=== PATIENT | female | born 1970 | race African-American/Black ===

== ENCOUNTER 2019-03-02 18:23 | Observation (INO) | payer BC ==
[~2019-03-02] VITALS: Ht 160 cm; Wt 70.5 kg
[2019-03-02 19:25] LABS: APPEARANCE,URINE CLEAR (CLEAR); BILIRUBIN,URINE NEGATIVE (NEGATIVE); COLOR,URINE YELLOW (YELLOW); GLUCOSE, URINE (UA) NEGATIVE (NEGATIVE); KETONES,URINE 15 mg/dL (NEGATIVE); LEUKOCYTE ESTERASE ,URINE NEGATIVE (NEGATIVE); NITRATE,URINE NEGATIVE (NEGATIVE); OCCULT BLOOD,URINE NEGATIVE (NEGATIVE); PROTEIN,URINE 30 mg/dL (NEGATIVE); UROBILINOGEN,URINE 0.2 mg/dL (0.2-1.0)
[2019-03-02] MEDS ORDERED: ONDANSETRON HCL 4 MG/2 ML VIAL ONE (19:29)
[2019-03-02 19:32] LABS: BACTERIA,URINE Rare /HPF (None Seen); MUCUS,URINE Rare LPF (None Seen); RBC,URINE 0-1 /HPF (0-1); SQUAMOUS EPITHELIAL CELL,UR Rare /HPF (0-2)
[2019-03-02 20:12] LABS: INR 1.05 (0.85-1.15); PARTIAL THROMBOPLASTIN TIME 27.4 SEC (26.3-35.5)
[2019-03-02 20:16] LABS: BASOPHILS % (AUTO) 0.4 % (0.0-5.0); LYMPHOCYTES % (AUTO) 11.4 % (21.0-51.0); MEAN CORPUSCULAR HEMOGLOBIN 27.2 pg (27.0-33.0); MEAN CORPUSCULAR HGB CONC 33.2 g/dL (32.0-36.0); MEAN CORPUSCULAR VOLUME 81.7 fL (79-99); MONOCYTES % (AUTO) 6.6 % (3.0-13.0); NEUTROPHILS % (AUTO) 81.6 % (40.0-77.0); PLATELET COUNT (AUTO) 116 K/uL (130-400); RED CELL DISTRIBUTION WIDTH 15.3 % (11.0-15.5); WHITE BLOOD COUNT (AUTO) 9.2 K/uL (4.8-10.8)
[2019-03-02 20:20] LABS: ALBUMIN 3.6 g/dL (3.5-5.0); BILIRUBIN,TOTAL 0.3 mg/dL (0.2-1.0); TOTAL PROTEIN, SERUM 8.2 g/dL (6.0-8.3)
[2019-03-02 20:24] LABS: POTASSIUM 2.8 mmol/L (3.5-5.1)
[2019-03-02 20:29] LABS: PLATELET MORPHOLOGY COMMENT SLIGHTLY DECREASED
[2019-03-02 20:30] LABS: B-TYPE NATRIURETIC PEPTIDE 18 pg/mL (0-100)
[2019-03-02] MEDS ORDERED: IOHEXOL-350 75 ML VIAL IV ONE (20:42)
[2019-03-02] MEDS ORDERED: SODIUM CHLORIDE 0.9% 1000ML 2,000 ML IV ONE (21:17)
[2019-03-02] MEDS ORDERED: METRONIDAZOLE 500MG/100ML BAG 100 ML ONE (21:56)
[2019-03-02] MEDS ORDERED: LEVOFLOXACIN 750 MG/D5W 150 ML 150 ML ONE (21:56)
[2019-03-02] MEDS ORDERED: POTASSIUM CHLORIDE 20MEQ/100ML 100 ML IV ONE (22:25)
[2019-03-02] MEDS ORDERED: ATORVASTATIN CALCIUM 20 MG TABLET ONE (22:25)
[2019-03-02] MEDS ORDERED: LEVETIRACETAM 500 MG TABLET PO ONE (22:26)
[2019-03-02] MEDS ORDERED: HYOSCYAMINE SULFATE 0.125 MG TAB.SUBL SL ONE ×2 (22:26→22:28)
[2019-03-02] MEDS ORDERED: ZOSYN 3.375GM+NS 50ML 50 ML IV ONE (23:46)
[2019-03-02] MEDS ORDERED: DEXTROSE 5 % AND 0.9 % NACL 1,000 ML IV ONE (23:46)
[2019-03-03] VITALS (7 sets, daily range): BP systolic 81–117; BP diastolic 52–76
[2019-03-03] MEDS ORDERED: ONDANSETRON HCL 4 MG/2 ML VIAL IVP PRN (00:30)
[2019-03-03] MEDS ORDERED: HYOS0.3738 PO (00:41)
[2019-03-03] MEDS ORDERED: LIFI1DRO OP (00:41)
[2019-03-03] MEDS ORDERED: METO-408 PO (00:41)
[2019-03-03] MEDS ORDERED: VALA500T38 PO (00:41)
[2019-03-03] MEDS ORDERED: HYDR-4068 PO (00:41)
[2019-03-03] MEDS ORDERED: CLON1PAT13 TD (00:41)
[2019-03-03] MEDS ORDERED: VENL37.570 PO (00:41)
[2019-03-03] MEDS ORDERED: CYPR4TAB46 PO (00:41)
[2019-03-03] MEDS ORDERED: ELIM560C TP (00:41)
[2019-03-03] MEDS ORDERED: IBUP-2077 PO (00:41)
[2019-03-03] MEDS ORDERED: HYDR-3421 PO (00:41)
[2019-03-03] MEDS ORDERED: ATOR10 PO (00:41)
[2019-03-03] MEDS ORDERED: LEVE500T19 PO (00:41)
[2019-03-03] MEDS ORDERED: ONDA8TAB12 PO (00:41)
--- NOTE | 2019-03-03 01:20 | NUR ---
PAIN Paged dr silvestre re pts c/o abdominal pain.
[2019-03-03] MEDS ORDERED: MORPHINE SULFATE 2 MG/ML 1ML SYG IVP PRN (01:30)
[2019-03-03] MEDS ORDERED: POTASSIUM CHLORIDE 10% ELIXIR 20 MEQ/15 ML UDCUP PO PRN (01:30)
[2019-03-03] MEDS ORDERED: LIDOCAINE HCL-MPF 1% 2ML VIAL IV PRN (01:30)
[2019-03-03] MEDS ORDERED: POTASSIUM CHLORIDE 20MEQ/100ML 100 ML IV PRN (01:30)
[2019-03-03] MEDS: DEXTROSE 5 % AND 0.9 % NACL 1,000 ML IV SCH ×3 (02:24→17:14)
[2019-03-03 05:41] LABS: HEMATOCRIT 34.8 % (36-48); MEAN CORPUSCULAR HEMOGLOBIN 27.6 pg (27.0-33.0); MEAN CORPUSCULAR HGB CONC 33.4 g/dL (32.0-36.0); MEAN CORPUSCULAR VOLUME 82.8 fL (79-99); NUCLEATED RED BLOOD CELLS 0.1 % (0.0-0.19); PLATELET COUNT (AUTO) 107 K/uL (130-400); RED CELL DISTRIBUTION WIDTH 15.1 % (11.0-15.5); WHITE BLOOD COUNT (AUTO) 8.6 K/uL (4.8-10.8)
[2019-03-03 05:56] LABS: BILIRUBIN,TOTAL 0.3 mg/dL (0.2-1.0); POTASSIUM 3.1 mmol/L (3.5-5.1); TOTAL PROTEIN, SERUM 6.9 g/dL (6.0-8.3)
[2019-03-03] MEDS: POTASSIUM CHLORIDE 20 MEQ ERTAB PO PRN ×3 (06:09→12:37)
[2019-03-03] MEDS: FLU VACC QUAD 2019-20(6MOS UP) 60 MCG/0.5 ML VIAL IM SCH (07:44)
[2019-03-03] MEDS: ZOSYN 3.375GM+NS 50ML 50 ML IV SCH ×2 (07:54→17:13)
[2019-03-03 08:19] LABS: LYMPHOCYTES % (MANUAL) 21 % (22-44); MAN.DIFF COMMENT-IMPRESSION MANUAL DIFFERENTIAL; MONOCYTES % (MANUAL) 16 % (2-9); PLATELET MORPHOLOGY COMMENT SLIGHTLY DECREASED; REACTIVE LYMPHOCYTES 1 % (0-0); SEGMENTED NEUTROPHILS % 62 % (40-70)
[2019-03-03] MEDS ORDERED: SODIUM CHLORIDE 0.9% 1000ML 1,000 ML IV SCH (09:45)
--- NOTE | 2019-03-03 09:51 | NUR ---
NS BOLUS Called Dr. Young and informed him of patient's BP. Ordered NS bolus 1L bag and started at 0950.
[2019-03-03] MEDS ORDERED: HYDROCODONE/ACETAMINOPHEN 10/325 MG TAB ONE (12:34)
--- NOTE | 2019-03-03 16:00 | NUR ---
INITIAL MET W PT; AAOX3, INDP, EMPLOYED, LIVES W [place], NO DME, HX METASTATIC BREAST CANCER- HOME SAFE AND ACCESSIBLE, DCP HOME Addendum: 03/04/19 at 1707 by REENA MONTEMAYOR RN CM Amended: Links added.
--- NOTE | 2019-03-03 20:00 | NUR ---
BOTH ARM RESTRICTION Pt states she only had a lumpectomy done to her left arm,denies habing alejandrina mastectomies.Informed of Md orders to keep both arm restricted.Verbalized understanding.
[2019-03-03] MEDS: HYDROCODONE/ACETAMINOPHEN 10/325 MG TAB PO PRN (21:39)
[2019-03-04 00:24] VITALS: BP 136/98
[2019-03-04] MEDS: ZOSYN 3.375GM+NS 50ML 50 ML IV SCH ×2 (00:28→10:18)
[2019-03-04] MEDS: HYDROCODONE/ACETAMINOPHEN 10/325 MG TAB PO PRN ×2 (01:42→10:19)
--- NOTE | 2019-03-04 02:00 | NUR ---
SHOWER Pt took a shower and bathed with CHG wipes.States she feels itchy after the chg wipes.
[2019-03-04] MEDS: DEXTROSE 5 % AND 0.9 % NACL 1,000 ML IV SCH ×2 (02:38→10:18)
[2019-03-04 04:11] VITALS: BP 130/67
[2019-03-04] MEDS: POTASSIUM CHLORIDE 20 MEQ ERTAB PO PRN ×2 (07:03→10:19)
[2019-03-04 07:30] VITALS: BP 117/69
[2019-03-04] MEDS: FLU VACC QUAD 2019-20(6MOS UP) 60 MCG/0.5 ML VIAL IM SCH (09:00)
[2019-03-04 11:00] VITALS: BP 120/68
== END 2019-03-04 15:15 | disposition home or self-care (01) ==
LOC: EDH 18:23 → EDHIP 22:28 → 3CH 03-03 00:51
PROVIDERS: ADMIT Internal Medicine Hematology & Oncology; ATTEND Internal Medicine Hematology & Oncology
DX: K52.9 Noninfective gastroenteritis and colitis, unspecified (principal); K59.00 Constipation, unspecified; I45.81 Long QT syndrome; I51.7 Cardiomegaly; C50.919 Malignant neoplasm of unspecified site of unspecified female breast; C79.51 Secondary malignant neoplasm of bone; C79.31 Secondary malignant neoplasm of brain; C78.7 Secondary malignant neoplasm of liver and intrahepatic bile duct; C78.00 Secondary malignant neoplasm of unspecified lung; J45.909 Unspecified asthma, uncomplicated; Z90.13 Acquired absence of bilateral breasts and nipples; Z92.21 Personal history of antineoplastic chemotherapy; Z95.828 Presence of other vascular implants and grafts; Z90.710 Acquired absence of both cervix and uterus
CPT/HCPCS: 36415 ×2; 71045; 74177; 80053 ×2; 81001; 82550; 83605; 83690; 83880; 84132; 84484; 85025 ×2; 85610; 85730; 87040 ×2; 87088; 93005; 96361 ×2; 96365; 96366 ×2; 96375; 99283; G0378 ×41; J1956; J2405; J2543 ×5; J3480; J3490; J7030; J7042 ×5; Q2036 ×2; Q9967; 96376

== ENCOUNTER → 2019-10-09 | Outpatient (CLI) | payer BC ==
[~2019-10-09] MED LIST: ATOR10 PO; CLON1PAT13 TD; CYPR4TAB46 PO; ELIM560C TP; HYDR-3421 PO; HYDR-4068 PO; HYOS0.3738 PO; IBUP-2077 PO; LEVE500T19 PO; LIFI1DRO OP; METO-408 PO; ONDA8TAB12 PO; VALA500T42 PO; VENL37.570 PO
== END | disposition home or self-care (01) ==
LOC: RAH 08:16
PROVIDERS: ATTEND Internal Medicine Hematology & Oncology
DX: E78.5 Hyperlipidemia, unspecified (principal); R55 Syncope and collapse
CPT/HCPCS: 93306; 93356

== ENCOUNTER 2019-11-29 17:48 | Emergency (ER) | payer BC ==
[2019-11-29 18:51] LABS: BASOPHILS % (AUTO) 0.3 % (0.0-5.0); EOSINOPHILS % (AUTO) 0.3 % (0.0-8.0); HEMATOCRIT 38.4 % (36-48); LYMPHOCYTES % (AUTO) 27.3 % (21.0-51.0); MEAN CORPUSCULAR HEMOGLOBIN 28.1 pg (27.0-33.0); MEAN CORPUSCULAR VOLUME 87.9 fL (79-99); MONOCYTES % (AUTO) 9.7 % (3.0-13.0); NEUTROPHILS % (AUTO) 62.1 % (40.0-77.0); PLATELET COUNT (AUTO) 131 K/uL (130-400); RED BLOOD CELL COUNT(AUTO) 4.37 MIL/uL (4.00-5.50); RED CELL DISTRIBUTION WIDTH 15.9 % (11.0-15.5); WHITE BLOOD COUNT (AUTO) 6.3 K/uL (4.8-10.8)
[2019-11-29] MEDS ORDERED: DiphenhydrAMINE HCL 50 MG/ML VIAL ONE (18:55)
[2019-11-29 18:59] LABS: POTASSIUM 3.6 mmol/L (3.5-5.1)
[2019-11-29 19:08] LABS: INR 1.09 (0.85-1.15); PROTHROMBIN TIME 11.7 SEC (9.6-11.6)
[2019-11-29] MEDS ORDERED: LORAZEPAM 2 MG/ML 1 ML VIAL ONE (19:12)
[2019-11-29 20:06] LABS: PARTIAL THROMBOPLASTIN TIME > 120.0 SEC (26.3-35.5)
[2020-03-10] MEDS ORDERED: PANT40TA54 PO (23:53)
[2020-03-10] MEDS ORDERED: ALPR0.255 PO (23:53)
[2020-03-10] MEDS ORDERED: CYCL10TA7 PO (23:53)
[2020-03-10] MEDS ORDERED: COD30 PO (23:53)
[2020-03-10] MEDS ORDERED: FLUO30CR TP (23:53)
[2020-03-10] MEDS ORDERED: HYDR28.484 RC (23:53)
[2020-03-10] MEDS ORDERED: DIPH1TAB24 PO (23:53)
[2020-03-10] MEDS ORDERED: TUCA150T PO (23:53)
[2020-03-10] MEDS ORDERED: CAPECITABINE 500 MG PO (23:53)
== END 2019-11-29 20:50 | disposition home or self-care (01) ==
LOC: EDH 17:48
DX: R22.0 Localized swelling, mass and lump, head (principal); T45.1X5A Adverse effect of antineoplastic and immunosuppressive drugs, initial encounter; Z88.8 Allergy status to other drugs, medicaments and biological substances; Z85.3 Personal history of malignant neoplasm of breast; Z85.830 Personal history of malignant neoplasm of bone; Z85.841 Personal history of malignant neoplasm of brain; Z85.05 Personal history of malignant neoplasm of liver; Z85.118 Personal history of other malignant neoplasm of bronchus and lung; Z90.710 Acquired absence of both cervix and uterus; Y92.89 Other specified places as the place of occurrence of the external cause
CPT/HCPCS: 36415; 80048; 85025; 85610; 85730; 96374; 96375; 99284; J1200; J2060

== ENCOUNTER 2020-03-23 17:19 | Inpatient (IN) | payer BC ==
[~2020-03-23] VITALS: Ht 160 cm; Wt 61.6 kg
[~2020-03-23 17:19] MED LIST changes: +ALPR0.255 PO; +CAPECITABINE 500 MG PO; +COD30 PO; +CYCL10TA7 PO; +DIPH1TAB24 PO; +FLUO30CR TP; +HYDR28.484 RC; -LEVE500T19 PO; +PANT40TA54 PO; +TUCA150T PO; -VENL37.570 PO
[2020-03-23 18:25] LABS: BASOPHILS % (AUTO) 1.5 % (0.0-5.0); EOSINOPHILS % (AUTO) 0.3 % (0.0-8.0); HEMATOCRIT 42.5 % (36-48); LYMPHOCYTES % (AUTO) 40.1 % (21.0-51.0); MEAN CORPUSCULAR HEMOGLOBIN 29.8 pg (27.0-33.0); MEAN CORPUSCULAR HGB CONC 33.2 g/dL (32.0-36.0); MEAN CORPUSCULAR VOLUME 89.9 fL (79-99); MONOCYTES % (AUTO) 14.9 % (3.0-13.0); NEUTROPHILS % (AUTO) 42.6 % (40.0-77.0); PLATELET COUNT (AUTO) 264 K/uL (130-400); RED BLOOD CELL COUNT(AUTO) 4.73 MIL/uL (4.00-5.50); WHITE BLOOD COUNT (AUTO) 3.3 K/uL (4.8-10.8)
[2020-03-23 18:32] LABS: CARBON DIOXIDE 28 mmol/L (21-32); CHLORIDE 102 mmol/L (101-111); GLOMERULAR FILTR. RATE CALC 76 mL/min (>60); GLUCOSE,RANDOM 145 mg/dL (70-105); POTASSIUM 3.6 mmol/L (3.5-5.1); SODIUM SERUM 137 mmol/L (136-145); UREA NITROGEN, BLOOD 7 mg/dL (7-18)
[2020-03-23 18:34] LABS: INR 1.02 (0.85-1.15); PARTIAL THROMBOPLASTIN TIME 26.6 SEC (26.3-35.5)
[2020-03-23 18:36] LABS: ALANINE AMINOTRANSFERASE 33 U/L (12-78); ALBUMIN 3.4 g/dL (3.5-5.0); ASPARTATE AMINOTRANSFERASE 36 U/L (10-37); BILIRUBIN,TOTAL 0.4 mg/dL (0.2-1.0); CREATINE KINASE, TOTAL 140 U/L (21-232); TOTAL PROTEIN, SERUM 8.2 g/dL (6.0-8.3)
[2020-03-23 18:39] LABS: ACETAMINOPHEN < 1 mcg/mL (10-30); ALCOHOL, BLOOD < 3 mg/dL (0-10); SALICYLATE < 2.8 mg/dL (2.8-20.0)
[2020-03-23 18:47] LABS: APPEARANCE,URINE Clear (CLEAR); BILIRUBIN,URINE Negative (NEGATIVE); COLOR,URINE Yellow (YELLOW); GLUCOSE, URINE (UA) Negative (NEGATIVE); KETONES,URINE Negative (NEGATIVE); LEUKOCYTE ESTERASE ,URINE Negative (NEGATIVE); NITRATE,URINE Negative (NEGATIVE); OCCULT BLOOD,URINE Negative (NEGATIVE); PROTEIN,URINE Negative (NEGATIVE); UROBILINOGEN,URINE 0.2 mg/dL (0.2-1.0)
[2020-03-23 18:53] LABS: AMPHET/METH SCREEN,URINE NEGATIVE (NEGATIVE); BARBITURATE SCREEN, URINE NEGATIVE (NEGATIVE); BENZODIAZEPINES SCREEN,URINE NEGATIVE (NEGATIVE); CANNABINOID SCREEN,URINE NEGATIVE (NEGATIVE); COCAINE SCREEN,URINE NEGATIVE (NEGATIVE); OPIATE SCREEN,URINE NEGATIVE (NEGATIVE); PHENCYCLIDINE SCREEN,URINE NEGATIVE (NEGATIVE)
[2020-03-24] MEDS ORDERED: LORAZEPAM 2 MG/ML 1 ML VIAL ONE (02:01)
[2020-03-24] MEDS ORDERED: ZIPRASIDONE MESYLATE 20 MG/VIAL IM ONE (02:01)
[2020-03-24] MEDS: SODIUM CHLORIDE 0.9% 1000ML 1,000 ML IV SCH (16:45)
[2020-03-24 16:48] VITALS: BP 108/70
[2020-03-24 19:58] VITALS: BP 111/76
[2020-03-24 23:34] VITALS: BP 113/81
[2020-03-25] MEDS: SODIUM CHLORIDE 0.9% 1000ML 1,000 ML IV SCH ×2 (00:28→20:30)
[2020-03-25 04:00] VITALS: BP 118/88
[2020-03-25 07:55] VITALS: BP 121/88
--- NOTE | 2020-03-25 08:07 | NUR ---
IA ATTEMPTED CALLS TO PT PHONE AND TO SONS NUMBER LISTED ON FACE SHEET. NO ANSWER . WILL F/UP AT BEDSIDE
[2020-03-25] MEDS ORDERED: GADODIAMIDE 10 MMOL/20 ML VIAL IV ONE (09:48)
--- NOTE | 2020-03-25 10:00 | NUR ---
inappropriate behavior pt in room sitting on window ledge helped pt out of ledge pt states aren't you glad i wasn't standing up ?and asked her to lye down in bed and please call if she needs to get up again activated bed alarm pt in a very playful mood singing and screaming out acting like a child ..
[2020-03-25 11:00] VITALS: BP 134/104
--- NOTE | 2020-03-25 12:00 | NUR ---
IV pt pulled iv out right hand while she was in hallway with label maker and decided to act like a ballerina and rolled in the floor ,very unexpected behavior
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
--- NOTE | 2020-03-25 12:24 | NUR ---
COMPLETED CALL TO [facility], INTAKE STAFF STATED DOES NOT HAVE INSTRUCTIONS RE COVID WHETHER RAPID OR PCR NEEDS TO BE DONE BUT WILL CALL BACK
[2020-03-25] MEDS ORDERED: CYCLOBENZAPRINE HCL 10 MG TABLET PO PRN (13:30)
[2020-03-25] MEDS ORDERED: IBUPROFEN 800 MG TAB PO PRN (13:30)
[2020-03-25] MEDS ORDERED: DIPHENOXYLATE HCL/ATROPINE 2.5/0.025 MG TAB PO PRN (13:30)
[2020-03-25] MEDS ORDERED: ONDANSETRON ODT 4 MG TAB PO PRN (13:30)
[2020-03-25] MEDS ORDERED: HYDROCODONE/ACETAMINOPHEN 10/325 MG TAB PO PRN (13:30)
[2020-03-25] MEDS ORDERED: CLON1PAT14 TP (13:40)
[2020-03-25] MEDS ORDERED: HALOPERIDOL LACTATE 5 MG/ML VIAL ONE (13:44)
[2020-03-25] MEDS ORDERED: HALOPERIDOL 1 MG TABLET PO PRN (13:45)
[2020-03-25] MEDS ORDERED: HALOPERIDOL DECANOATE 100 MG/ML ML IM PRN (13:45)
--- NOTE | 2020-03-25 13:45 | NUR ---
RESTARTED IV pt trying to spit on other staff member in room spit several times ,acting out jumping on the bed at one time carge nurse called physician and he ordered Haldol 4 mg im
[2020-03-25] MEDS ORDERED: HALOPERIDOL LACTATE 5 MG/ML VIAL IM PRN (14:15)
[2020-03-25] MEDS ORDERED: HALOPERIDOL LACTATE 5 MG/ML VIAL IV PRN (14:15)
[2020-03-25] MEDS ORDERED: ZIPRASIDONE MESYLATE 20 MG/VIAL IM PRN (15:45)
[2020-03-25 17:07] VITALS: BP 127/76
--- NOTE | 2020-03-25 18:12 | NUR ---
SUMMARY OF TROPICAL INPUT CALL REC'ED FROM [facility] PENDING. DESCRIBED PATIENT'S BEHAVIOR AT TIME OF CALL- JUMPING ON BED, GRABBING STAFF CHEST, JUMPING UP AND DOWN ON THE BED; DESCRIBED WHAT DR WATKINS HAD TOLD THIS AM AND RELAYED THAT INFORMATION SENT RECORD VIA EMAIL REC'ED CALL BACK FROM [facility], STATES NOT A CANDIDATE FOR PATIENT AT THIS TIME, STATES CALL TO FAMILY AND FAMILY STATES IS NOT A DANGER TO HERSELF AND OTHER AND THAT THE VERSION OF INCIDENTS THAT DR. WATKINS RECALLED THE FMAILY RELAYING TO HIM WAS NOT CONGRUENT WITH THE FAMILY DESCRIPTION OF PATIENT. FAMILY WANTS PATIENT HOME AND WANT PATIENT TO CONTINUE TO ATTEND HER MD CAAL APPOINTMENTS. CALL TO MOM PRASHANT PERDOMO, PATIENT INDEPENDENT, LIVES W SON NO DME, INDP, NO DMS. STILL UNDER TX FOR METASTATIC CANCER, MOM WILL TRANSPORT HOME FROM HOSPITAL
[2020-03-25 20:00] VITALS: BP 129/83
[2020-03-25] MEDS: ATORVASTATIN CALCIUM 10 MG TABLET PO SCH ×2 (20:30→20:54)
[2020-03-25] MEDS: QUETIAPINE FUMARATE 25 MG TAB PO SCH ×2 (20:30→20:55)
[2020-03-25] MEDS: RISPERIDONE 1 MG TABLET PO SCH ×2 (20:30→20:54)
[2020-03-25] MEDS: METOPROLOL SUCCINATE 50 MG TAB.SR.24H PO SCH ×2 (20:31→20:55)
[2020-03-26] VITALS: BP 108/70
[2020-03-26 04:00] VITALS: BP 113/78
[2020-03-26] MEDS: SODIUM CHLORIDE 0.9% 1000ML 1,000 ML IV SCH (05:52)
[2020-03-26] MEDS ORDERED: PANTOPRAZOLE SODIUM 40 MG TABLET.DR PO SCH (07:30)
[2020-03-26 08:00] VITALS: BP 100/72
[2020-03-26] MEDS: RISPERIDONE 1 MG TABLET PO SCH (09:00)
[2020-03-26 12:00] VITALS: BP 90/52
[2020-03-26 16:00] VITALS: BP 111/75
--- NOTE | 2020-03-26 17:15 | NUR ---
DISCHARGED NOW USING TEACH BACK.SALINE LOCK REMOVED,INSTRUCTIONS GIVEN AND VERBALIZES UNDERSTANDING. MOTHER PRESENT WHEN DR. WATKINS MADE HIS ROUNDS AND HAS ASSUMED RESPONSIBILITY FOR HER CARE SO DR. WATKINS LEFT ORDERS TO DC WITH THE UNDERSTANDING THE MOM WILL PROVIDE ASST. NEEDED.
--- NOTE | 2020-03-26 17:51 | NUR ---
DR. WATKINS HERE EARLIER- DISCUSSED PATIENT BEHAVIOR TODAY , TTBH SCREENING, TALK WITH MOTHER DISCUSSED DID NOT MEET IP KATHLEEN, DISCUSSED MOM WANTS TO TAKE HOME DR. Tarun FONG D/C TO HOME, FOLLOW UP WITH DR. SWANN ORDERS PLACED, CHARGE AND RN INFORMED LATERE DR. SWANN CAME TO GIVE MED RX- PT TO FOLLOW UP WITH DR. SWANN IN TWO WEEKS Addendum: 03/26/20 at 1755 by REENA MONTEMAYOR RN Amended: Links added.
== END 2020-03-26 17:30 | disposition home or self-care (01) | DRG 71 ==
LOC: EDH 17:19 → EDHIP 21:29 → OBSVTOIN 21:29 → DAHIP 03-24 16:18 → 3DH 03-24 18:41
PROVIDERS: ADMIT Internal Medicine Hematology & Oncology; ATTEND Internal Medicine Hematology & Oncology
DX: G93.41 Metabolic encephalopathy (principal); F32.3 Major depressive disorder, single episode, severe with psychotic features; G13.1 Other systemic atrophy primarily affecting central nervous system in neoplastic disease; C50.919 Malignant neoplasm of unspecified site of unspecified female breast; G40.909 Epilepsy, unspecified, not intractable, without status epilepticus; Z88.8 Allergy status to other drugs, medicaments and biological substances; Z85.830 Personal history of malignant neoplasm of bone; Z85.05 Personal history of malignant neoplasm of liver; Z85.118 Personal history of other malignant neoplasm of bronchus and lung; Z85.841 Personal history of malignant neoplasm of brain; Z92.21 Personal history of antineoplastic chemotherapy; Z90.13 Acquired absence of bilateral breasts and nipples; Z90.710 Acquired absence of both cervix and uterus
CPT/HCPCS: 36415; 70450; 70553; 71045; 80053; 80305; 81003; 82140; 82550; 84484; 85025; 85610; 85730; 93005; A9579; G0378; G0481; J1630; J2060; J3486; J7030

== ENCOUNTER 2020-06-23 12:58 | Emergency (ER) | payer BC ==
[~2020-06-23 12:58] MED LIST changes: -CAPECITABINE 500 MG PO; -CLON1PAT13 TD; +CLON1PAT14 TP; -ELIM560C TP; -FLUO30CR TP; -HYDR28.484 RC; -HYOS0.3738 PO; -LIFI1DRO OP; -VALA500T42 PO
[2020-06-23 13:33] LABS: BASOPHILS % (AUTO) 0.7 % (0.0-5.0); EOSINOPHILS % (AUTO) 0.7 % (0.0-8.0); HEMATOCRIT 41.2 % (36-48); MEAN CORPUSCULAR HEMOGLOBIN 29.6 pg (27.0-33.0); MEAN CORPUSCULAR HGB CONC 33.3 g/dL (32.0-36.0); MONOCYTES % (AUTO) 8.7 % (3.0-13.0); NEUTROPHILS % (AUTO) 64.5 % (40.0-77.0); PLATELET COUNT (AUTO) 143 K/uL (130-400); RED BLOOD CELL COUNT(AUTO) 4.63 MIL/uL (4.00-5.50); RED CELL DISTRIBUTION WIDTH 11.8 % (11.0-15.5); WHITE BLOOD COUNT (AUTO) 4.6 K/uL (4.8-10.8)
[2020-06-23 13:42] LABS: CREATININE 1.1 mg/dL (0.5-1.5); POTASSIUM 3.5 mmol/L (3.5-5.1)
[2020-06-23 13:47] LABS: ALBUMIN 3.9 g/dL (3.5-5.0); BILIRUBIN,TOTAL 0.2 mg/dL (0.2-1.0); TOTAL PROTEIN, SERUM 8.1 g/dL (6.0-8.3)
[2020-06-23] MEDS ORDERED: FAMOTIDINE/PF 20 MG/2 ML VIAL IV ONE (14:40)
== END 2020-06-23 20:03 | disposition home or self-care (01) ==
LOC: EDH 12:58
DX: E16.2 Hypoglycemia, unspecified (principal); R55 Syncope and collapse; C50.919 Malignant neoplasm of unspecified site of unspecified female breast; Z85.05 Personal history of malignant neoplasm of liver; Z85.841 Personal history of malignant neoplasm of brain; Z85.118 Personal history of other malignant neoplasm of bronchus and lung; Z85.830 Personal history of malignant neoplasm of bone; Z88.8 Allergy status to other drugs, medicaments and biological substances
CPT/HCPCS: 36415; 70450; 71045; 80053; 85025; 96361 ×2; 96374; 99285; J3490

== ENCOUNTER 2020-09-01 10:46 | Inpatient (IN) | payer BC ==
[~2020-09-01] VITALS: Ht 157.5 cm; Wt 74.3 kg
[~2020-09-01 10:46] MED LIST changes: +CYCL-309 PO; -CYCL10TA7 PO
[2020-09-01 11:18] LABS: BASOPHILS % (AUTO) 0.5 % (0.0-5.0); EOSINOPHILS % (AUTO) 1.2 % (0.0-8.0); HEMATOCRIT 39.1 % (36-48); LYMPHOCYTES % (AUTO) 21.5 % (21.0-51.0); MEAN CORPUSCULAR HEMOGLOBIN 29.2 pg (27.0-33.0); MEAN CORPUSCULAR HGB CONC 33.5 g/dL (32.0-36.0); MEAN CORPUSCULAR VOLUME 87.1 fL (79-99); MONOCYTES % (AUTO) 14.3 % (3.0-13.0); NEUTROPHILS % (AUTO) 62.3 % (40.0-77.0); PLATELET COUNT (AUTO) 166 K/uL (130-400); RED BLOOD CELL COUNT(AUTO) 4.49 MIL/uL (4.00-5.50); RED CELL DISTRIBUTION WIDTH 12.7 % (11.0-15.5); WHITE BLOOD COUNT (AUTO) 4.1 K/uL (4.8-10.8)
[2020-09-01 11:28] LABS: POTASSIUM 3.7 mmol/L (3.5-5.1)
[2020-09-01 11:30] LABS: INR 1.06 (0.85-1.15); PROTHROMBIN TIME 11.5 SEC (9.6-11.6)
[2020-09-01 11:31] LABS: PARTIAL THROMBOPLASTIN TIME 27.7 SEC (26.3-35.5)
[2020-09-01 11:33] LABS: ALBUMIN 3.8 g/dL (3.5-5.0); BILIRUBIN,TOTAL 0.4 mg/dL (0.2-1.0); TOTAL PROTEIN, SERUM 8.3 g/dL (6.0-8.3)
[2020-09-01] MEDS ORDERED: DiphenhydrAMINE HCL 50 MG/ML VIAL ONE (12:49)
[2020-09-01] MEDS ORDERED: ACETAMINOPHEN 325 MG TAB ONE (12:50)
[2020-09-01] MEDS ORDERED: PROCHLORPERAZINE 10MG/2ML INJ ONE (12:50)
[2020-09-01] MEDS ORDERED: MORPHINE 4 MG SYG ONE (13:02)
[2020-09-01] MEDS ORDERED: 0.9%NACL 1000ML 1,000 ML IV ONE (13:02)
[2020-09-01 13:43] LABS: APPEARANCE,URINE Clear (CLEAR); BILIRUBIN,URINE Negative (NEGATIVE); COLOR,URINE Yellow (YELLOW); GLUCOSE, URINE (UA) Negative (NEGATIVE); KETONES,URINE Negative (NEGATIVE); LEUKOCYTE ESTERASE ,URINE Negative (NEGATIVE); NITRATE,URINE Negative (NEGATIVE); OCCULT BLOOD,URINE Negative (NEGATIVE); PROTEIN,URINE Negative (NEGATIVE)
[2020-09-01] MEDS ORDERED: SOLU-MEDROL 125MG VIAL ONE ×2 (15:15→19:34)
[2020-09-01] MEDS ORDERED: GADODIAMIDE 10 MMOL/20 ML VIAL IV ONE (15:28)
[2020-09-01] MEDS ORDERED: ONDANSETRON 4MG INJ IVP PRN (16:00)
[2020-09-01] MEDS ORDERED: 0.9%NACL 1000ML 1,000 ML IV SCH (16:00)
[2020-09-01 18:25] VITALS: BP 105/59
[2020-09-01] MEDS ORDERED: LEVE500T19 PO (19:16)
[2020-09-01] MEDS ORDERED: LIFI1DRO OU (19:16)
[2020-09-01] MEDS ORDERED: VALA500T42 PO (19:16)
[2020-09-01] MEDS: SOLU-MEDROL 125MG VIAL IVP SCH (19:49)
[2020-09-01 20:00] VITALS: BP 102/53
[2020-09-02] VITALS: BP 101/50
[2020-09-02] MEDS: SOLU-MEDROL 125MG VIAL IVP SCH ×4 (01:42→20:54)
[2020-09-02 04:00] VITALS: BP 124/63
[2020-09-02 08:39] VITALS: BP 135/76
[2020-09-02 13:10] VITALS: BP 117/80
[2020-09-02 16:00] VITALS: BP 118/59
[2020-09-02 20:28] VITALS: BP 124/54
[2020-09-02] MEDS: VALACYCLOVIR HCL 500 MG TABLET PO SCH (20:54)
[2020-09-02] MEDS: LEVETIRACETAM 500 MG TABLET PO SCH (20:54)
[2020-09-03 00:28] VITALS: BP 118/60
[2020-09-03] MEDS: SOLU-MEDROL 125MG VIAL IVP SCH ×3 (03:17→14:47)
[2020-09-03 04:32] VITALS: BP 133/63
[2020-09-03 07:56] VITALS: BP 119/55
[2020-09-03] MEDS: LEVETIRACETAM 500 MG TABLET PO SCH (10:15)
[2020-09-03] MEDS: VALACYCLOVIR HCL 500 MG TABLET PO SCH (10:16)
[2020-09-03 11:20] VITALS: BP 122/63
== END 2020-09-03 16:00 | disposition home or self-care (01) | DRG 947 ==
LOC: EDH 10:46 → EDHIP 14:35 → 3AH 18:04 → 3BH 09-02 13:08
PROVIDERS: ADMIT Internal Medicine Hematology & Oncology; ATTEND Internal Medicine Hematology & Oncology
DX: G89.3 Neoplasm related pain (acute) (chronic) (principal); G93.6 Cerebral edema; C79.31 Secondary malignant neoplasm of brain; C78.00 Secondary malignant neoplasm of unspecified lung; C78.7 Secondary malignant neoplasm of liver and intrahepatic bile duct; C79.51 Secondary malignant neoplasm of bone; C50.919 Malignant neoplasm of unspecified site of unspecified female breast; Z90.13 Acquired absence of bilateral breasts and nipples; Z90.710 Acquired absence of both cervix and uterus; Z91.19 Patient's noncompliance with other medical treatment and regimen; Z88.8 Allergy status to other drugs, medicaments and biological substances
CPT/HCPCS: 36415; 70450; 70553; 80053; 81003; 82550; 82948; 84484; 85025; 85610; 85730; 93005; 93306; 93356; A9579; G0378; J0780; J1200; J2270; J2405; J2930; J7030

== ENCOUNTER 2021-01-06 12:20 | Observation (INO) | payer BC ==
[~2021-01-06] VITALS: Ht 160 cm; Wt 67.4 kg
[~2021-01-06 12:20] MED LIST changes: -CYCL-309 PO; +CYCL10TA7 PO; +LEVE500T19 PO; +LIFI1DRO OU; +VALA500T42 PO
[2021-01-06 12:22] VITALS: BP 108/69
[2021-01-06] MEDS ORDERED: ONDANSETRON 4MG INJ IVP PRN (14:30)
[2021-01-06 14:34] LABS: HEMATOCRIT 36.7 % (36-48); MEAN CORPUSCULAR HEMOGLOBIN 29.6 pg (27.0-33.0); MEAN CORPUSCULAR HGB CONC 32.4 g/dL (32.0-36.0); MEAN CORPUSCULAR VOLUME 91.3 fL (79-99); PLATELET COUNT (AUTO) 148 K/uL (130-400); RED BLOOD CELL COUNT(AUTO) 4.02 MIL/uL (4.00-5.50); RED CELL DISTRIBUTION WIDTH 12.9 % (11.0-15.5); WHITE BLOOD COUNT (AUTO) 4.3 K/uL (4.8-10.8)
[2021-01-06 14:44] LABS: CREATININE 0.9 mg/dL (0.5-1.5); POTASSIUM 3.7 mmol/L (3.5-5.1)
[2021-01-06 15:07] LABS: EOSINOPHILS % (MANUAL) 2 % (1-6); LYMPHOCYTES % (MANUAL) 24 % (22-44); MONOCYTES % (MANUAL) 8 % (2-9); PLATELET MORPHOLOGY COMMENT ADEQUATE; REACTIVE LYMPHOCYTES 1 % (0-0); SEGMENTED NEUTROPHILS % 65 % (40-70)
[2021-01-06 15:08] LABS: MAN.DIFF COMMENT-IMPRESSION MANUAL DIF
[2021-01-06 16:00] VITALS: BP 131/57
[2021-01-06] MEDS: SOLU-MEDROL 125MG VIAL IVP SCH ×2 (18:27→23:21)
[2021-01-06 19:42] VITALS: BP 116/65
[2021-01-06] MEDS: LEVETIRACETAM 500 MG TABLET PO SCH (20:17)
[2021-01-06] MEDS: VALACYCLOVIR HCL 500 MG TABLET PO SCH (20:17)
[2021-01-06] MEDS ORDERED: ATORVASTATIN 20 MG TABLET PO SCH (21:00)
[2021-01-06] MEDS ORDERED: METOPROLOL SUCCINATE 50 MG TAB.SR.24H PO SCH (21:00)
[2021-01-06] MEDS ORDERED: 0.9%NACL 1000ML 1,000 ML IV SCH (23:00)
[2021-01-06 23:36] VITALS: BP 106/53
[2021-01-07 04:18] VITALS: BP 118/60
[2021-01-07] MEDS: SOLU-MEDROL 125MG VIAL IVP SCH ×2 (05:24→12:05)
[2021-01-07] MEDS ORDERED: GADOTERATE MEGLUMINE 10 MMOL/20 ML VIAL IV ONE (07:48)
[2021-01-07 08:13] VITALS: BP 120/60
[2021-01-07] MEDS ORDERED: PANTOPRAZOLE 40 MG TAB DR PO SCH (09:00)
[2021-01-07] MEDS: LEVETIRACETAM 500 MG TABLET PO SCH (09:03)
[2021-01-07] MEDS: VALACYCLOVIR HCL 500 MG TABLET PO SCH (09:03)
[2021-01-07 11:39] VITALS: BP 167/91
[2021-01-07] MEDS ORDERED: HEPARIN PF LOCK 500 UNIT/5ML IV SCH (14:30)
== END 2021-01-07 15:05 | disposition home or self-care (01) ==
LOC: EDH 12:37 → EDHIP 12:38 → 3BH 14:15
PROVIDERS: ADMIT Internal Medicine Hematology & Oncology; ATTEND Internal Medicine Hematology & Oncology
DX: G93.6 Cerebral edema (principal); C50.919 Malignant neoplasm of unspecified site of unspecified female breast; C79.31 Secondary malignant neoplasm of brain; C78.00 Secondary malignant neoplasm of unspecified lung; C78.7 Secondary malignant neoplasm of liver and intrahepatic bile duct; C79.51 Secondary malignant neoplasm of bone; Z91.19 Patient's noncompliance with other medical treatment and regimen; Z90.13 Acquired absence of bilateral breasts and nipples; Z90.710 Acquired absence of both cervix and uterus; Z88.8 Allergy status to other drugs, medicaments and biological substances
CPT/HCPCS: 36415; 70553; 80048; 85025; 96361 ×2; 96374; 96375; 96376 ×2; A9575; G0378 ×26; J1642; J2930 ×4; J7030

== ENCOUNTER 2021-05-20 13:40 | Emergency (ER) | payer BC ==
[~2021-05-20] VITALS: Ht 157.5 cm; Wt 56.7 kg
[~2021-05-20 13:40] MED LIST changes: +CYCL-309 PO; -CYCL10TA7 PO
[2021-05-20] MEDS ORDERED: GADOTERATE MEGLUMINE 5 MMOL/10 ML VIAL IV ONE (15:14)
[2021-05-20 15:45] LABS: BASOPHILS % (AUTO) 0.3 % (0.0-5.0); EOSINOPHILS % (AUTO) 1.1 % (0.0-8.0); HEMATOCRIT 35.4 % (36-48); LYMPHOCYTES % (AUTO) 31.5 % (21.0-51.0); MEAN CORPUSCULAR HEMOGLOBIN 30.5 pg (27.0-33.0); MEAN CORPUSCULAR HGB CONC 32.5 g/dL (32.0-36.0); MEAN CORPUSCULAR VOLUME 93.9 fL (79-99); MONOCYTES % (AUTO) 10.3 % (3.0-13.0); NEUTROPHILS % (AUTO) 56.5 % (40.0-77.0); PLATELET COUNT (AUTO) 132 K/uL (130-400); RED BLOOD CELL COUNT(AUTO) 3.77 MIL/uL (4.00-5.50); RED CELL DISTRIBUTION WIDTH 14.2 % (11.0-15.5); WHITE BLOOD COUNT (AUTO) 3.7 K/uL (4.8-10.8)
[2021-05-20 15:57] LABS: CREATININE 0.8 mg/dL (0.5-1.5); POTASSIUM 3.8 mmol/L (3.5-5.1)
[2021-05-20 16:01] LABS: ALBUMIN 3.7 g/dL (3.5-5.0); BILIRUBIN,TOTAL 0.3 mg/dL (0.2-1.0); TOTAL PROTEIN, SERUM 7.3 g/dL (6.0-8.3)
[2021-05-20 19:42] VITALS: BP 116/72
== END 2021-05-20 19:45 | disposition home or self-care (01) ==
LOC: EDH 13:40
DX: C79.31 Secondary malignant neoplasm of brain (principal); Z79.899 Other long term (current) drug therapy; Z79.1 Long term (current) use of non-steroidal anti-inflammatories (NSAID); Z88.8 Allergy status to other drugs, medicaments and biological substances
CPT/HCPCS: 36415; 70553; 80053; 85025; 93005; 99284; A9575

== ENCOUNTER 2021-05-26 02:23 | Emergency (ER) | payer BC ==
[~2021-05-26] VITALS: Ht 160 cm; Wt 56.7 kg
[2021-05-26] MEDS ORDERED: METOCLOPRAMIDE 10 MG/2 ML VIAL IVP ONE (03:00)
[2021-05-26] MEDS ORDERED: ONDANSETRON 4MG INJ IVP ONE (03:00)
[2021-05-26] MEDS ORDERED: 0.9%NACL 1000ML 1,000 ML IV ONE ×2 (03:00→04:30)
[2021-05-26 03:19] LABS: BASOPHILS % (AUTO) 0.5 % (0.0-5.0); EOSINOPHILS % (AUTO) 0.5 % (0.0-8.0); HEMATOCRIT 34.6 % (36-48); LYMPHOCYTES % (AUTO) 23.1 % (21.0-51.0); MEAN CORPUSCULAR HEMOGLOBIN 30.5 pg (27.0-33.0); MEAN CORPUSCULAR HGB CONC 33.8 g/dL (32.0-36.0); MEAN CORPUSCULAR VOLUME 90.3 fL (79-99); MONOCYTES % (AUTO) 12.8 % (3.0-13.0); NEUTROPHILS % (AUTO) 62.9 % (40.0-77.0); PLATELET COUNT (AUTO) 145 K/uL (130-400); RED BLOOD CELL COUNT(AUTO) 3.83 MIL/uL (4.00-5.50); RED CELL DISTRIBUTION WIDTH 13.6 % (11.0-15.5); WHITE BLOOD COUNT (AUTO) 4.1 K/uL (4.8-10.8)
[2021-05-26 03:36] LABS: CREATININE 0.9 mg/dL (0.5-1.5); POTASSIUM 3.2 mmol/L (3.5-5.1)
[2021-05-26 03:40] LABS: ALBUMIN 3.7 g/dL (3.5-5.0); BILIRUBIN,TOTAL 0.4 mg/dL (0.2-1.0); MAGNESIUM 1.9 mg/dL (1.80-2.40); TOTAL PROTEIN, SERUM 7.4 g/dL (6.0-8.3)
[2021-05-26 03:57] LABS: APPEARANCE,URINE Clear (CLEAR); BILIRUBIN,URINE Negative (NEGATIVE); COLOR,URINE Yellow (YELLOW); GLUCOSE, URINE (UA) Negative (NEGATIVE); KETONES,URINE 40 mg/dL (NEGATIVE); LEUKOCYTE ESTERASE ,URINE Negative (NEGATIVE); NITRATE,URINE Negative (NEGATIVE); OCCULT BLOOD,URINE Negative (NEGATIVE); PROTEIN,URINE POS 1+ mg/dL (NEGATIVE)
[2021-05-26 04:13] LABS: BACTERIA,URINE None Seen /HPF (None Seen); MUCUS,URINE Few LPF (None Seen); RBC,URINE None Seen /HPF (0-1); SQUAMOUS EPITHELIAL CELL,UR Rare /HPF (0-2); WBC,URINE 0-1 /HPF (0-1)
[2021-05-26] MEDS ORDERED: KETOROLAC 30MG VIAL (30MG/ML) IV ONE (04:30)
[2021-05-26] MEDS ORDERED: DiphenhydrAMINE HCL 50 MG/ML VIAL IV ONE (04:30)
[2021-05-26] MEDS ORDERED: ONDA4TAB10 PO (05:36)
[2021-05-26] MEDS ORDERED: PHEN12S PR (05:36)
[2021-05-26 05:39] VITALS: BP 106/59
== END 2021-05-26 07:39 | disposition home or self-care (01) ==
LOC: EDH 02:23
DX: E86.9 Volume depletion, unspecified (principal); R11.2 Nausea with vomiting, unspecified; Z79.1 Long term (current) use of non-steroidal anti-inflammatories (NSAID); Z79.899 Other long term (current) drug therapy; Z85.3 Personal history of malignant neoplasm of breast; Z85.841 Personal history of malignant neoplasm of brain
CPT/HCPCS: 36415; 80053; 81001; 83605; 83690; 83735; 84484; 85025; 96361; 96374; 96375; 99284; J1200; J1885; J2405; J2765; J7030 ×2

== ENCOUNTER 2021-09-09 21:44 | Emergency (ER) | payer BC ==
[~2021-09-09] VITALS: Ht 157.5 cm; Wt 47.2 kg
[~2021-09-09 21:44] MED LIST changes: +ONDA4TAB10 PO; +PHEN12S PR
[2021-09-09] MEDS ORDERED: MORPHINE 2 MG SYG IVP ONE (22:30)
[2021-09-09] MEDS ORDERED: ONDANSETRON 4MG INJ IVP ONE (22:30)
[2021-09-09] MEDS ORDERED: LIDOP TP (23:43)
[2021-09-09] MEDS ORDERED: ORPH-43 PO (23:43)
[2021-09-10] MEDS ORDERED: ORPHENADRINE CITRATE 30 MG/ML ML IV ONE
[2021-09-10 08:21] VITALS: BP 118/68
== END 2021-09-10 08:20 | disposition home or self-care (01) ==
LOC: EDH 21:44
DX: S39.012A Strain of muscle, fascia and tendon of lower back, initial encounter (principal); S00.03XA Contusion of scalp, initial encounter; S30.0XXA Contusion of lower back and pelvis, initial encounter; Z88.6 Allergy status to analgesic agent; Z79.1 Long term (current) use of non-steroidal anti-inflammatories (NSAID); W01.0XXA Fall on same level from slipping, tripping and stumbling without subsequent striking against object, initial encounter; Y93.89 Activity, other specified; Y92.89 Other specified places as the place of occurrence of the external cause; Y99.8 Other external cause status
CPT/HCPCS: 70450; 71045; 72125; 72170; 74176; 96374; 96375; 99284; J2360; J2405

== ENCOUNTER 2021-10-18 19:18 | Inpatient (IN) | payer OTHER, BC ==
[~2021-10-18] VITALS: Ht 160 cm; Wt 55.2 kg
[~2021-10-18 19:18] MED LIST changes: +LIDOP TP; +ORPH-43 PO
[2021-10-18] MEDS ORDERED: ASPIRIN 81MG CHEW TAB PO ONE (20:00)
[2021-10-18 20:17] LABS: BASOPHILS % (AUTO) 0.2 % (0.0-5.0); EOSINOPHILS % (AUTO) 0.3 % (0.0-8.0); HEMATOCRIT 34.6 % (36-48); LYMPHOCYTES % (AUTO) 22.3 % (21.0-51.0); MEAN CORPUSCULAR HEMOGLOBIN 31.2 pg (27.0-33.0); MEAN CORPUSCULAR HGB CONC 32.1 g/dL (32.0-36.0); MEAN CORPUSCULAR VOLUME 97.2 fL (79-99); NEUTROPHILS % (AUTO) 67.3 % (40.0-77.0); PLATELET COUNT (AUTO) 156 K/uL (130-400); RED BLOOD CELL COUNT(AUTO) 3.56 MIL/uL (4.00-5.50); RED CELL DISTRIBUTION WIDTH 12.4 % (11.0-15.5); WHITE BLOOD COUNT (AUTO) 6.4 K/uL (4.8-10.8)
[2021-10-18 20:26] LABS: CREATININE 0.9 mg/dL (0.5-1.5)
[2021-10-18 20:41] LABS: BILIRUBIN,TOTAL 0.2 mg/dL (0.2-1.0); TOTAL PROTEIN, SERUM 6.5 g/dL (6.0-8.3)
[2021-10-18 21:28] LABS: APPEARANCE,URINE Clear (CLEAR); BILIRUBIN,URINE Negative (NEGATIVE); COLOR,URINE Yellow (YELLOW); GLUCOSE, URINE (UA) Negative (NEGATIVE); KETONES,URINE Negative (NEGATIVE); LEUKOCYTE ESTERASE ,URINE Negative (NEGATIVE); NITRATE,URINE Negative (NEGATIVE); OCCULT BLOOD,URINE Negative (NEGATIVE); PH,URINE 7.5 (5.0-8.0); PROTEIN,URINE Negative (NEGATIVE)
[2021-10-18] MEDS ORDERED: LORAZEPAM 2 MG/ML 1 ML VIAL IVP ONE (22:00)
[2021-10-18] MEDS ORDERED: LORAZEPAM 2 MG/ML 1 ML VIAL ONE (23:44)
[2021-10-19] MEDS ORDERED: LORAZEPAM 2 MG/ML 1 ML VIAL ONE (04:18)
[2021-10-19] MEDS ORDERED: LORAZEPAM 2 MG/ML 1 ML VIAL IVP PRN (10:30)
[2021-10-19] MEDS ORDERED: DEXAMETHASONE 4 MG TAB PO SCH (13:45)
[2021-10-19] MEDS: LEVETIRACETAM 250 MG TABLET PO SCH (20:49)
[2021-10-20] MEDS: LEVETIRACETAM 250 MG TABLET PO SCH ×2 (09:15→20:38)
[2021-10-20] MEDS ORDERED: 0.9%NACL 1000ML 1,000 ML IV SCH (15:30)
[2021-10-20 15:48] VITALS: BP 113/63
[2021-10-20] MEDS ORDERED: OLANZAPINE 5 MG TAB PO ONE (18:30)
[2021-10-20] MEDS ORDERED: TEMA30CA5 PO (20:20)
[2021-10-20] MEDS ORDERED: PANT20TA18 PO (20:20)
[2021-10-20] MEDS ORDERED: MEMA10TA55 PO (20:20)
[2021-10-20] MEDS ORDERED: ACETAMINOPHEN 325 MG TAB ONE ×2 (20:35→20:36)
[2021-10-20] MEDS: TEMAZEPAM 30 MG CAP PO SCH (20:38)
[2021-10-20 20:43] VITALS: BP 105/65
[2021-10-21] VITALS: BP 95/57
[2021-10-21 04:00] VITALS: BP 96/57
[2021-10-21] MEDS ORDERED: ACETAMINOPHEN 325 MG TAB PO PRN (04:30)
[2021-10-21 08:00] VITALS: BP 94/54
[2021-10-21] MEDS: OLANZAPINE 5 MG TAB PO SCH ×2 (09:43→20:46)
[2021-10-21] MEDS: LEVETIRACETAM 250 MG TABLET PO SCH ×2 (09:44→20:46)
[2021-10-21 12:00] VITALS: BP 102/57
[2021-10-21] MEDS ORDERED: FLU VACC QS2021-22(6MOS UP)/PF 60 MCG/0.5 ML ML IM ONE (14:00)
[2021-10-21 16:00] VITALS: BP 91/47
[2021-10-21 20:00] VITALS: BP 104/56
[2021-10-21] MEDS: TEMAZEPAM 30 MG CAP PO SCH (20:46)
[2021-10-22] VITALS: BP 101/56
[2021-10-22 04:00] VITALS: BP 106/51
[2021-10-22 08:00] VITALS: BP 92/55
[2021-10-22] MEDS: OLANZAPINE 5 MG TAB PO SCH ×2 (08:16→21:07)
[2021-10-22] MEDS: LEVETIRACETAM 250 MG TABLET PO SCH ×2 (08:16→21:08)
[2021-10-22 12:00] VITALS: BP 91/51
[2021-10-22 16:00] VITALS: BP 96/58
[2021-10-22 20:00] VITALS: BP 120/64
[2021-10-22] MEDS: TEMAZEPAM 30 MG CAP PO SCH (21:07)
[2021-10-23] VITALS: BP 121/69
[2021-10-23 04:00] VITALS: BP 105/56
[2021-10-23 08:00] VITALS: BP 96/56
[2021-10-23] MEDS: LEVETIRACETAM 250 MG TABLET PO SCH ×2 (09:33→22:23)
[2021-10-23] MEDS: OLANZAPINE 5 MG TAB PO SCH ×2 (09:41→22:26)
[2021-10-23 12:00] VITALS: BP 109/68
[2021-10-23 16:00] VITALS: BP 94/53
[2021-10-23 19:00] VITALS: BP 96/53
[2021-10-23] MEDS: TEMAZEPAM 30 MG CAP PO SCH (22:26)
[2021-10-24 00:20] VITALS: BP 112/74
[2021-10-24 04:20] VITALS: BP 120/71
[2021-10-24 07:00] VITALS: BP 111/67
[2021-10-24] MEDS: OLANZAPINE 5 MG TAB PO SCH (10:16)
[2021-10-24] MEDS: LEVETIRACETAM 250 MG TABLET PO SCH (10:16)
[2021-10-24 11:36] VITALS: BP 118/72
[2021-10-24 16:00] VITALS: BP 116/66
== END 2021-10-24 20:20 | disposition home or self-care (01) | DRG 54 ==
LOC: EDH 19:18 → EDHIP 22:19 → 3BH 10-20 14:49
PROVIDERS: ADMIT Internal Medicine Hematology & Oncology; ATTEND Internal Medicine Hematology & Oncology
DX: C79.31 Secondary malignant neoplasm of brain (principal); G93.6 Cerebral edema; C34.90 Malignant neoplasm of unspecified part of unspecified bronchus or lung; C50.919 Malignant neoplasm of unspecified site of unspecified female breast; G40.909 Epilepsy, unspecified, not intractable, without status epilepticus; F22 Delusional disorders; E78.00 Pure hypercholesterolemia, unspecified; I10 Essential (primary) hypertension; Z51.5 Encounter for palliative care; Z80.3 Family history of malignant neoplasm of breast
CPT/HCPCS: 36415; 70450; 71045; 80053; 81003; 84484; 85025; 93005; G0378; J2060; J7030; J8540; Q2035

== ENCOUNTER 2021-12-11 19:41 | Observation (INO) | payer BC ==
[~2021-12-11] VITALS: Ht 157.5 cm; Wt 62.9 kg
[~2021-12-11 19:41] MED LIST changes: -CLON1PAT14 TP; -COD30 PO; -CYPR4TAB46 PO; -DIPH1TAB24 PO; -HYDR-3421 PO; -LEVE500T19 PO; -LIDOP TP; +MEMA10TA55 PO; -ONDA4TAB10 PO; -ONDA8TAB12 PO; -ORPH-43 PO; +PANT20TA18 PO; -PANT40TA54 PO; -PHEN12S PR; +TEMA30CA5 PO; -TUCA150T PO; -VALA500T42 PO
[2021-12-11] MEDS ORDERED: 0.9% NACL 500ML IV.SOLN 500 ML IV ONE (21:00)
[2021-12-11] MEDS ORDERED: ONDANSETRON 4MG INJ IVP ONE (21:00)
[2021-12-11 22:18] LABS: BASOPHILS % (AUTO) 0.3 % (0.0-5.0); EOSINOPHILS % (AUTO) 0.1 % (0.0-8.0); HEMATOCRIT 38.5 % (36-48); LYMPHOCYTES % (AUTO) 13.9 % (21.0-51.0); MEAN CORPUSCULAR HEMOGLOBIN 29.5 pg (27.0-33.0); MEAN CORPUSCULAR HGB CONC 31.7 g/dL (32.0-36.0); MEAN CORPUSCULAR VOLUME 93.2 fL (79-99); MONOCYTES % (AUTO) 8.8 % (3.0-13.0); NEUTROPHILS % (AUTO) 76.6 % (40.0-77.0); PLATELET COUNT (AUTO) 143 K/uL (130-400); RED BLOOD CELL COUNT(AUTO) 4.13 MIL/uL (4.00-5.50); RED CELL DISTRIBUTION WIDTH 11.8 % (11.0-15.5); WHITE BLOOD COUNT (AUTO) 6.7 K/uL (4.8-10.8)
[2021-12-11 22:29] LABS: CREATININE 0.8 mg/dL (0.5-1.5); POTASSIUM 4.6 mmol/L (3.5-5.1)
[2021-12-11 22:38] LABS: ALBUMIN 2.9 g/dL (3.5-5.0); BILIRUBIN,TOTAL 0.1 mg/dL (0.2-1.0); TOTAL PROTEIN, SERUM 6.3 g/dL (6.0-8.3)
[2021-12-12] MEDS ORDERED: LACTULOSE 20 GM/30 ML UDCUP PO PRN
[2021-12-12] MEDS ORDERED: ACETAMINOPHEN 325 MG TAB PO PRN ×2
[2021-12-12] MEDS ORDERED: MAG/ALUM/SIMETH 30 ML UDCUP PO PRN
[2021-12-12] MEDS ORDERED: MORPHINE 4 MG SYG IV PRN
[2021-12-12] MEDS ORDERED: ONDANSETRON 4MG INJ IV PRN
[2021-12-12] MEDS ORDERED: HYDROCODONE/ACETAMINOPHEN 5/325 MG TAB PO PRN
[2021-12-12 00:53] LABS: APPEARANCE,URINE CLEAR (CLEAR); BILIRUBIN,URINE NEGATIVE (NEGATIVE); COLOR,URINE YELLOW (YELLOW); GLUCOSE, URINE (UA) NEGATIVE (NEGATIVE); KETONES,URINE NEGATIVE (NEGATIVE); LEUKOCYTE ESTERASE ,URINE NEGATIVE (NEGATIVE); NITRATE,URINE NEGATIVE (NEGATIVE); OCCULT BLOOD,URINE NEGATIVE (NEGATIVE); PH,URINE 6.5 (5.0-8.0); PROTEIN,URINE NEGATIVE (NEGATIVE); UROBILINOGEN,URINE 0.2 mg/dL (0.2-1.0)
[2021-12-12] MEDS: DEXTROSE 5 %-0.45 % NACL 1,000 ML IV SCH ×2 (01:30→15:15)
[2021-12-12] MEDS: FAMOTIDINE 20MG TAB PO SCH ×2 (08:01→21:26)
[2021-12-12 08:35] VITALS: BP 109/79
[2021-12-12] MEDS ORDERED: CHOL100046 PO (09:16)
[2021-12-12] MEDS ORDERED: CICL34.62 TP (09:16)
[2021-12-12] MEDS ORDERED: DEXT30DR5 OP (09:16)
[2021-12-12] MEDS ORDERED: MV-M1TAB45 PO (09:16)
[2021-12-12] MEDS ORDERED: TEMA30CA PO (09:16)
[2021-12-12] MEDS ORDERED: ACET-3204 PO (09:16)
[2021-12-12] MEDS ORDERED: DIPH1TAB PO (09:16)
[2021-12-12] MEDS ORDERED: ORPH-43 PO (09:16)
[2021-12-12] MEDS ORDERED: HYDR-3421 PO (09:16)
[2021-12-12] MEDS ORDERED: OLAN2.5T29 PO (09:16)
[2021-12-12 11:00] VITALS: BP 137/70
[2021-12-12 16:00] VITALS: BP 102/74
[2021-12-12 20:00] VITALS: BP 102/66
[2021-12-13] VITALS: BP 126/77
[2021-12-13 04:00] VITALS: BP 120/72
[2021-12-13] MEDS: DEXTROSE 5 %-0.45 % NACL 1,000 ML IV SCH (04:22)
[2021-12-13 06:11] LABS: CREATININE 0.7 mg/dL (0.5-1.5); POTASSIUM 3.5 mmol/L (3.5-5.1)
[2021-12-13 07:30] VITALS: BP 105/60
[2021-12-13] MEDS: FAMOTIDINE 20MG TAB PO SCH (08:29)
[2021-12-13 12:10] VITALS: BP 105/54
== END 2021-12-13 15:45 | disposition home or self-care (01) ==
LOC: EDH 19:41 → EDHIP 19:42 → 3CH 12-12 08:03
PROVIDERS: ADMIT Internal Medicine; ATTEND Internal Medicine
DX: S09.90XA Unspecified injury of head, initial encounter (principal); Z20.822 Contact with and (suspected) exposure to COVID-19; R00.1 Bradycardia, unspecified; R11.10 Vomiting, unspecified; E87.0 Hyperosmolality and hypernatremia; C50.919 Malignant neoplasm of unspecified site of unspecified female breast; C79.31 Secondary malignant neoplasm of brain; C79.51 Secondary malignant neoplasm of bone; E11.649 Type 2 diabetes mellitus with hypoglycemia without coma; E78.00 Pure hypercholesterolemia, unspecified; G47.00 Insomnia, unspecified; I63.9 Cerebral infarction, unspecified; G93.6 Cerebral edema; K57.30 Diverticulosis of large intestine without perforation or abscess without bleeding; N28.9 Disorder of kidney and ureter, unspecified; Z85.3 Personal history of malignant neoplasm of breast; Z86.73 Personal history of transient ischemic attack (TIA), and cerebral infarction without residual deficits; Z90.13 Acquired absence of bilateral breasts and nipples; Z90.710 Acquired absence of both cervix and uterus; W18.30XA Fall on same level, unspecified, initial encounter; Y92.009 Unspecified place in unspecified non-institutional (private) residence as the place of occurrence of the external cause; Y93.89 Activity, other specified; Y99.8 Other external cause status
CPT/HCPCS: 36415 ×3; 70450; 74176; 80048; 80053; 81003; 82550; 82948; 83605 ×2; 84145; 84443; 84484; 85025; 87088; 87635; 93005 ×2; 96361 ×3; 96374; 99285; G0378 ×40; J2405; J7042 ×2

== ENCOUNTER → 2022-02-14 | Outpatient (CLI) | payer BC ==
[~2022-02-14] MED LIST changes: +ACET-3204 PO; -ALPR0.255 PO; +CHOL100046 PO; +CICL34.62 TP; -CYCL-309 PO; +DEXT30DR5 OP; +DIPH1TAB PO; +GADOTERATE MEGLUMINE 10 MMOL/20 ML VIAL IV ONE; +HYDR-3421 PO; -HYDR-4068 PO; -LIFI1DRO OU; +MV-M1TAB45 PO; +OLAN2.5T29 PO; +ORPH-43 PO; +TEMA30CA PO; -TEMA30CA5 PO
== END | disposition home or self-care (01) ==
LOC: RAH 09:07
PROVIDERS: ATTEND Internal Medicine Hematology & Oncology
DX: G31.9 Degenerative disease of nervous system, unspecified (principal); G93.89 Other specified disorders of brain; R51.9 Headache, unspecified
CPT/HCPCS: 70553; A9575

== ENCOUNTER → 2022-11-07 | Outpatient (CLI) | payer BC ==
[~2022-11-07] MED LIST changes: -GADOTERATE MEGLUMINE 10 MMOL/20 ML VIAL IV ONE; -ORPH-43 PO; +ORPH100T4 PO
== END | disposition home or self-care (01) ==
LOC: RAH 14:29
PROVIDERS: ATTEND Internal Medicine Hematology & Oncology
DX: C50.412 Malignant neoplasm of upper-outer quadrant of left female breast (principal); C78.00 Secondary malignant neoplasm of unspecified lung; C78.7 Secondary malignant neoplasm of liver and intrahepatic bile duct; R00.2 Palpitations; C79.51 Secondary malignant neoplasm of bone; C79.31 Secondary malignant neoplasm of brain; R10.84 Generalized abdominal pain; E86.0 Dehydration; R11.2 Nausea with vomiting, unspecified; R51.9 Headache, unspecified; F41.9 Anxiety disorder, unspecified; D64.9 Anemia, unspecified; E87.6 Hypokalemia; Z23 Encounter for immunization; T78.40XA Allergy, unspecified, initial encounter; S30.0XXA Contusion of lower back and pelvis, initial encounter; X58.XXXA Exposure to other specified factors, initial encounter; Y93.89 Activity, other specified; Y92.89 Other specified places as the place of occurrence of the external cause; Y99.8 Other external cause status
CPT/HCPCS: 93306

== ENCOUNTER → 2023-10-24 | Outpatient (CLI) | payer BC ==
[~2023-10-24] MED LIST changes: +AEC81 PO; +BACI1TAB24 PO; -CHOL100046 PO; -CICL34.62 TP; +CIPR7.5D7 OT; +DOCU-116 PO; -HYDR-3421 PO; +LEVE750T10 PO; +MAGN250T10 PO; +MEMA10TA21 PO; -MEMA10TA55 PO; -ORPH100T4 PO; -PANT20TA18 PO
== END | disposition home or self-care (01) ==
LOC: RAH 13:28
PROVIDERS: ATTEND Internal Medicine Hematology & Oncology
DX: I07.1 Rheumatic tricuspid insufficiency (principal); R06.02 Shortness of breath; M62.838 Other muscle spasm; K21.9 Gastro-esophageal reflux disease without esophagitis; H66.90 Otitis media, unspecified, unspecified ear
CPT/HCPCS: 93306; 93356

== ENCOUNTER → 2024-06-25 | Outpatient (CLI) | payer MEDICARE ==
[~2024-06-25] MED LIST changes: +GADOTERATE MEGLUMINE 10 MMOL/20 ML VIAL IV ONE; -OLAN2.5T29 PO; +OLAN2.5T77 PO
--- NOTE | 2024-06-25 13:08 | HMCIMG ---
MR BRAIN WWO CON HISTORY: Headaches COMPARISON: 02/25/2024 TECHNIQUE: MRI of the brain was performed utilizing multiple pulse sequences in axial, coronal and sagittal planes. Patient was not given contrast through intravenous route. FINDINGS: The ventricles and extraventricular CSF spaces are dilated consistent with cerebral atrophy. Nonspecific white matter changes are seen. There is no midline shift, mass effect or herniation. No subacute hemorrhage is seen. No MR evidence of acute infarct is seen in the diffusion weighted images. Cerebellar tonsils are in normal position. No evidence of mucoperiosteal thickening is seen of the visualized paranasal sinuses. Enhancing foci are seen in the right cerebellar hemisphere measuring 2 x 1 cm. Findings may be related to residual neoplastic process. This was present on previous study and grossly unchanged in size. IMPRESSION: 1. No MR evidence of acute infarct is seen in the diffusion weighted images. Enhancing foci are seen in the right cerebellar hemisphere measuring 2 x 1 cm. Findings may be related to residual neoplastic process. This was present on previous study and grossly unchanged in size. Atrophy white matter changes.
== END | disposition home or self-care (01) ==
LOC: RAH 10:53
PROVIDERS: ATTEND Internal Medicine Hematology & Oncology
DX: R90.82 White matter disease, unspecified (principal); R51.9 Headache, unspecified
CPT/HCPCS: 70553; A9575

== ENCOUNTER 2024-10-03 17:51 | Emergency (ER) | payer MEDICARE ==
[~2024-10-03] VITALS: Ht 160 cm; Wt 62.6 kg
[~2024-10-03 17:51] MED LIST changes: -GADOTERATE MEGLUMINE 10 MMOL/20 ML VIAL IV ONE
--- NOTE | 2024-10-03 19:14 | ERN ---
General Chief Complaint: Eye Problems Stated Complaint: EYE Time Seen by MD: 17:52 History of Present Illness Allergies: Coded Allergies: promethazine (Unverified Allergy, Unknown, 11/29/19) dexamethasone (Unverified Adverse Reaction, Unknown, HALLUCINATIONS, 10/19/21) Home Meds Reported Medications Ciprofloxacin HCl/Dexameth (Ciproflox-Dexameth Otic Susp) 0.3 %-0.1 % Drops.susp, 1 ML OT BID, DROP 05/26/23 Bacillus Coagulans (Probiotic) 1 Billion Cell Tab.chew, 1 EACH PO DAILY, TAB.CHEW 05/26/23 Magnesium Oxide (Magnesium) 250 Mg Tablet, 250 MG PO HS, TAB 05/26/23 Docusate Sodium (Colace) 100 Mg Capsule, 100 MG PO BID PRN for NASAL CONGESTION, CAP 05/26/23 Aspirin (ASPIRIN 81 MG ECTAB) 81 Mg Ectab, 81 MG PO HS, TAB.EC 05/26/23 Levetiracetam (Levetiracetam) 750 Mg Tablet, 750 MG PO BID, TAB 05/26/23 Olanzapine (Olanzapine) 2.5 Mg Tablet, 2.5 MG PO HS, TAB 05/26/23 Mv-Min/Iron/Folic/Calcium/Vitk (Women's Daily Formula Tablet) 1 Each Tablet, 1 EACH PO DAILY, TAB 12/12/21 Dextran 70/Hypromellose (Artificials Tears Drops) 30 Ml Drops, 1 DROP OP Q2HPRN PRN for DRY EYES, DROP 12/12/21 Acetaminophen (Acetaminophen 8 Hour) 650 Mg Tablet.er, 650 MG PO Q8H PRN for PAIN LEVEL 4 TO 6, TAB 12/12/21 Temazepam (Temazepam) 30 Mg Capsule, 30 MG PO HSPRN PRN for SLEEP, CAP 12/12/21 Diphenoxylate HCl/Atropine (Lomotil Tablet) 1 Each Tablet, 1 EACH PO Q4HPRN PRN for DIARRHEA, TAB 12/12/21 Memantine HCl (Memantine HCl) 10 Mg Tablet, 10 MG PO BID, TAB 10/20/21 Metoprolol Succinate (Metoprolol Succinate) 25 Mg Tab.er.24h, 25 MG PO HS, TAB 03/03/19 Ibuprofen (Ibuprofen 800 mg Tab) 800 Mg Tab, 800 MG PO Q8H PRN for PAIN LEVEL 1 TO 5, TAB 03/03/19 Atorvastatin Calcium (LIPITOR) 20 Mg Tab, 20 MG PO HS, TAB 03/03/19 Past Medical History Past Medical History: High Cholesterol, Other Medical History Other: BREAST CA, BRAIN CA. Past Surgical History: Other Surgical History Other: LAMBECTOMY Social History Social History: Negative, Lives with family, Other Female( History) History: Not Applicable ED Course Vital Signs Date Time Temp Pulse Resp B/P (MAP) Pulse Ox O2 Delivery O2 Flow Rate FiO2 10/03/24 18:12 77 16 127/80 99 Room Air* 0 21 10/03/24 17:53 99.0 60 16 116/75 98 Room Air 0 DX & DISP Disposition: Discharge Departure Impression: Primary Impression: Irritation of both eyes Condition: Stable Additional Instructions: Your physical examination is unremarkable. Your eyes appear normal at this time. EMS performed an eye wash in route. Please follow up with your primary care doctor in 2-3 days for repeat evaluation. Referrals: RAQUEL WATKINS MD (PCP) I have reviewed the case, and I agree with, Diagnosis and Plan I PERFORMED THE SUBSTANTIVE PORTION OF THE VISIT. I HAVE REVIEWED AND PERSONALLY MADE AND APPROVE THE MANAGEMENT PLAN THAT IS DOCUMENTED IN THE NOTE BY MYSELF OR THE ROSE. I ACKNOWLEDGE FOR RESPONSIBILITY FOR THE PATIENT'S MANAGEMENT PLAN. SABRINA WAY Oct 03, 2024 19:14
[2024-10-03 20:00] VITALS: BP 114/57; PULSE 71; RESP 16; TEMP 98.7; O2SAT 98
== END 2024-10-03 20:00 | disposition home or self-care (01) ==
LOC: EDH 17:51
DX: H57.13 Ocular pain, bilateral (principal); E78.00 Pure hypercholesterolemia, unspecified; Z79.82 Long term (current) use of aspirin; Z98.890 Other specified postprocedural states
CPT/HCPCS: 99283

== ENCOUNTER 2024-12-04 12:24 | Emergency (ER) | payer MEDICARE ==
[~2024-12-04] VITALS: Ht 160 cm; Wt 83.0 kg
--- NOTE | 2024-12-04 12:41 | ERN ---
ED Note History of Present Illness Stated Complaint: TWISTED LT ANKLE,PAIN Time Seen by MD: 12:27 Dictation: PATIENT IS A 54-YEAR-OLD FEMALE COMING IN TODAY WITH COMPLAINTS OF LEFT LATERAL ANKLE PAIN SWELLING AFTER SHE TWISTED IN HER HOME. SHE STATES SHE WAS WALKING IN A NARROW HALLWAY WHEN SHE TWISTED OVER ITEM IN THE HALLWAY. NEUROVASCULAR CMS INTACT NO HIP PAIN NO BACK PAIN. SHE HAS NOT TAKEN ANYTHING PRIOR TO ARRIVAL FOR PAIN. Allergies: Coded Allergies: promethazine (Unverified Allergy, Unknown, 11/29/19) dexamethasone (Unverified Adverse Reaction, Unknown, HALLUCINATIONS, 10/19/21) Home Meds Active Scripts Ibuprofen (Ibuprofen 800 mg Tab) 800 Mg Tab, 800 MG PO Q8H PRN for fever or pain, #30 TAB 0 Refills Prov:ANAMARIA GONZÁLES RELIGIOUS STUDIES PROFESSOR 12/04/24 Reported Medications Ciprofloxacin HCl/Dexameth (Ciproflox-Dexameth Otic Susp) 0.3 %-0.1 % Drops.susp, 1 ML OT BID, DROP 05/26/23 Bacillus Coagulans (Probiotic) 1 Billion Cell Tab.chew, 1 EACH PO DAILY, TAB.CHEW 05/26/23 Magnesium Oxide (Magnesium) 250 Mg Tablet, 250 MG PO HS, TAB 05/26/23 Docusate Sodium (Colace) 100 Mg Capsule, 100 MG PO BID PRN for NASAL CONGESTION, CAP 05/26/23 Aspirin (ASPIRIN 81 MG ECTAB) 81 Mg Ectab, 81 MG PO HS, TAB.EC 05/26/23 Levetiracetam (Levetiracetam) 750 Mg Tablet, 750 MG PO BID, TAB 05/26/23 Olanzapine (Olanzapine) 2.5 Mg Tablet, 2.5 MG PO HS, TAB 05/26/23 Mv-Min/Iron/Folic/Calcium/Vitk (Women's Daily Formula Tablet) 1 Each Tablet, 1 EACH PO DAILY, TAB 12/12/21 Dextran 70/Hypromellose (Artificials Tears Drops) 30 Ml Drops, 1 DROP OP Q2HPRN PRN for DRY EYES, DROP 12/12/21 Acetaminophen (Acetaminophen 8 Hour) 650 Mg Tablet.er, 650 MG PO Q8H PRN for PAIN LEVEL 4 TO 6, TAB 12/12/21 Temazepam (Temazepam) 30 Mg Capsule, 30 MG PO HSPRN PRN for SLEEP, CAP 12/12/21 Diphenoxylate HCl/Atropine (Lomotil Tablet) 1 Each Tablet, 1 EACH PO Q4HPRN PRN for DIARRHEA, TAB 12/12/21 Memantine HCl (Memantine HCl) 10 Mg Tablet, 10 MG PO BID, TAB 10/20/21 Metoprolol Succinate (Metoprolol Succinate) 25 Mg Tab.er.24h, 25 MG PO HS, TAB 03/03/19 Ibuprofen (Ibuprofen 800 mg Tab) 800 Mg Tab, 800 MG PO Q8H PRN for PAIN LEVEL 1 TO 5, TAB 03/03/19 Atorvastatin Calcium (LIPITOR) 20 Mg Tab, 20 MG PO HS, TAB 03/03/19 Past Medical History Past Medical History: High Cholesterol, Other Additional Past Medical Hx: BREAST CA, BRAIN CA. Surgical History: Other Surgical History Other: LAMBECTOMY Social History: Negative, Lives with family, Other History: Not Applicable RN Note Reviewed/Agreed w/PFSH: Yes Review of System Dictation CONSTITUTIONAL: NEGATIVE EXCEPT FOR HPI HEAD/FACE: NEGATIVE EXCEPT FOR HPI EENT: NEGATIVE EXCEPT FOR HPI RESPIRATORY: NEGATIVE EXCEPT FOR HPI GASTROINTESTINAL/ABDOMINAL: NEGATIVE EXCEPT FOR HPI GENITOURINARY: NEGATIVE EXCEPT FOR HPI MUSCULOSKELETAL: NEGATIVE EXCEPT FOR HPI LEFT LATERAL ANKLE PAIN SWELLING INTEGUMENTARY: NEGATIVE EXCEPT FOR HPI NEUROLOGICAL/PSYCH: NEGATIVE EXCEPT FOR HPI HEMATOLOGIC/LYMPHATIC: NEGATIVE EXCEPT FOR HPI ALL SYSTEMS NEGATIVE, EXCEPT NOTED ABOVE. 13 POINT REVIEW OF SYSTEMS ASSESSED AND ALL NEGATIVE EXCEPT FOR ABOVE. Initial Vital Sign VS Vital Signs Date Time Temp Pulse Resp B/P (MAP) Pulse Ox O2 Delivery O2 Flow Rate FiO2 12/04/24 13:07 98.2 53 16 103/60 100 Room Air 0 12/04/24 13:11 21 Physical Exam Dictation VITAL SIGNS REVIEWED GENERAL APPEARANCE: ALERT, ORIENTED X 3, MODERATE ACUTE DISTRESS, WELL DEVELOPED, NOURISHED. HEAD AND FACE: NON-TRAUMATIC. EYES: PERRL, PINK CONJUNCTIVAS, EYELID NO TRAUMA, ANTERIOR CHAMBER WITH ARCUS SENILIS. EARS: PINNAS INTACT AND NO SIGNS OF TRAUMA OR ERYTHEMA EAR CANALS CLEAR AND NO DISCHARGE TM NO ERYTHEMA NOSE: NO DISCHARGE, NO BLEEDING. OROPHARYNX: MOUTH NORMAL, TONGUE PINK, PHARYNX CLEAR,NO ERYTHEMA, TONSILS NO EXUDATES, NO ABSCESSES NOTED, MUCOUS MEMBRANE MOIST NECK: SUPPLE, NON-TENDER, NO THYROMEGALY, NO MASSES, NO JVD, NO BRUITS BREAST:DEFERRED CHEST:NO TENDERNESS, NO CREPITUS, NO PARADOXICAL MOVEMENT, NO RETRACTIONS LUNGS:CLEAR, WELL-VENTILATED, SYMMETRIC, NO RALES, NO WHEEZING, NO RHONCHI, NO STRIDOR, GOOD BREATH SOUNDS BILATERALLY HEART: REGULAR RATE, REGULAR RHYTHM, NO MURMUR, NO GALLOPS VASCULAR: NO PERIPHERAL EDEMA, ABDOMEN: SOFT, POSITIVE BOWEL SOUNDS, NONDISTENDED, NO GUARDING, NONTENDER, NO REBOUND, NO MASSES NO HEPATOMEGALY, NO SPLENOMEGALY, NO ESPINOSA'S SIGN, NO HERNIAS. RECTAL: DEFERRED GENITAL: DEFERRED NEUROLOGICAL: NORMAL SPEECH, MOTOR FUNCTION INTACT, SENSORY FUNCTION INTACT MUSCULOSKELETAL: NECK NONTENDER, FULL RANGE OF MOTION, BACK NONTENDER, FULL RANGE OF MOTION, EXTREMITIES: LEFT LATERAL ANKLE PAIN SWELLING. DECREASED ROM SECONDARY TO PAIN. SKIN: COLOR PINK, DRY, NO TURGOR, NO RASH, NO LACERATIONS, NO ABRASIONS, NO CONTUSIONS. LYMPHATIC: DEFERRED Results (Laboratory/Radiology) Laboratory/Radiology 1330/LEFT ANKLE X-RAY NEGATIVE Labs Reviewed?: Yes ED Course ED Course Orders Procedure Category Date Status Time Ankle Comp 3vws Lt RAD 12/04/24 Resulted 12:37 Acetaminophen 500mg PHA 12/04/24 Complete Tab (Tylenol 500mg T 13:00 Apply Ice Pack To: CPOE 12/04/24 Transmitted (Er) 12:37 Posterior Ankle Splint MARYELLEN.ER 12/04/24 Complete 12:37 Current Medications Medications (Trade) Dose Ordered Sig/Mitch Route PRN Reason Start Time Stop Time Status Last Admin Dose Admin Acetaminophen (TYLenol 500MG TAB) 1,000 mg ONCE ONCE PO 12/04/24 13:00 12/04/24 13:01 DC 12/04/24 12:52 Vital Signs Date Time Temp Pulse Resp B/P (MAP) Pulse Ox O2 Delivery O2 Flow Rate FiO2 12/04/24 13:11 98.1 68 16 102/52 98 Room Air* 0 21 12/04/24 13:07 98.2 53 16 103/60 100 Room Air 0 1330/RIGHT POSTERIOR ANKLE SPLINT PLACED BY TECH DISTAL NEUROVASCULAR CMS INTACT POST PLACEMENT. Medical Decision Making MDM MEDICAL DECISION-MAKING BASED ON PAIN MANAGEMENT AND X-RAY OF LEFT ANKLE. NO FRACTURE ON FILM. PATIENT DISCHARGED HOME WITH LEFT ANKLE SPRAIN SPLINT REFERRED TO FOR FOLLOW UP DX & DISP Disposition: Discharge Departure Impression: Primary Impression: Moderate left ankle sprain Additional Impression: Fall Condition: Stable Scripts Ibuprofen (Ibuprofen 800 mg Tab) 800 Mg Tab 800 MG PO Q8H PRN for fever or pain, #30 TAB 0 Refills Prov: ANAMARIA GONZÁLES NP 12/04/24 Additional Instructions: FOLLOW-UP WITH PRIMARY CARE PROVIDER IN 1 TO 2 DAYS. TAKE MEDICATIONS DIRECTED HERE IN THE EMERGENCY ROOM. OKAY TO CONTINUE HOME MEDICATIONS UNLESS OTHERWISE DISCUSSED DURING YOUR VISIT IN THE EMERGENCY ROOM TODAY. RETURN TO YOUR NEAREST EMERGENCY ROOM IF SYMPTOMS WORSEN OR IF THERE IS NO IMPROVEMENT. CALL 911 IF YOU NEED IMMEDIATE ASSISTANCE. TAKE TYLENOL OR MOTRIN [id number] NEEDED AND IF NO CONTRAINDICATIONS ARE PRESENT. INCREASE ORAL HYDRATION. A WOUND CULTURE OR URINE CULTURE WAS ORDERED HERE IN THE EMERGENCY ROOM DEPARTMENT PLEASE FOLLOW-UP WITH PRIMARY CARE PROVIDER AND ADVISE THEM TO GET REPEAT PORTS FROM OUR FACILITY. IF YOU HAD ANY CAROLYN WRAP/SPLINTS THAT WERE APPLIED HERE, PLEASE DO NOT REMOVE THEM UNTIL YOU SEE YOUR PRIMARY CARE OR SPECIALTY. SPLINT/NO WEIGHT-BEARING UNTIL CLEARED BY ORTHOPEDICS, CALL FOR AN APPOINTMENT TODAY. APPLY ICE PACKS THREE TO 4 TIMES A DAY TO ANKLE. TAKE IBUPROFEN WITH FOOD NEEDED FOR PAIN. Referrals: RAQUEL WATKINS MD (PCP) SUSY HILARIO MD I have reviewed the case, and I agree with, Diagnosis and Plan ANAMARIA GONZÁLES NP Dec 04, 2024 12:41 ZOILA GONZALEZ DO Dec 04, 2024 18:07
[2024-12-04] MEDS: acetaMINOPHEN 500 MG TABLET PO ONE (12:52)
[2024-12-04 13:11] VITALS: BP 102/52; PULSE 68; RESP 16; TEMP 98.1; O2SAT 98
[2024-12-04] MEDS ORDERED: IBUP-2077 PO (13:36)
--- NOTE | 2024-12-04 14:01 | HMCIMG ---
ANKLE COMP 3VWS LT HISTORY: Ankle pain and swelling COMPARISON: None TECHNIQUE: 3 images of the left ankle were obtained. FINDINGS: There is no acute displaced fracture or dislocation. Soft tissue swelling is seen. Small calcaneal spur is seen. IMPRESSION: 1. Findings as described above.
== END 2024-12-04 13:46 | disposition home or self-care (01) ==
LOC: EDH 12:24
DX: S93.402A Sprain of unspecified ligament of left ankle, initial encounter (principal); E78.00 Pure hypercholesterolemia, unspecified; Z79.82 Long term (current) use of aspirin; Z85.3 Personal history of malignant neoplasm of breast; Z79.899 Other long term (current) drug therapy; X50.1XXA Overexertion from prolonged static or awkward postures, initial encounter; Y93.89 Activity, other specified; Y92.89 Other specified places as the place of occurrence of the external cause; Y99.8 Other external cause status
CPT/HCPCS: 29515; 73610; 99283